=== PATIENT | male | born 1985 | race Caucasian/White ===

== ENCOUNTER 2018-07-05 10:37 | Emergency (ER) | payer SELFPAY ==
[2018-07-05] MEDS: HYDROCODONE/APAP (10/325) TAB PO (11:33)
== END 2018-07-05 13:37 | disposition home or self-care (01) ==
LOC: FTE 13:37
DX: M79.601 Pain in right arm (principal); M25.512 Pain in left shoulder; M54.2 Cervicalgia; M54.9 Dorsalgia, unspecified; R51 Headache; Z87.891 Personal history of nicotine dependence
CPT/HCPCS: 70450; 72072; 72100; 72125; 73030; 73090-RT; 73130-RT; 99284-25